=== PATIENT | male | born 1975 | race Caucasian/White ===

== ENCOUNTER 2018-03-31 02:18 | Observation (INO) | payer MEDICAID ==
[~2018-03-31] VITALS: Ht 167.6 cm; Wt 96.6 kg
[2018-03-31 04:49] VITALS: BP 148/92; BMI 34.3
[2018-03-31 06:03] LABS: BASOPHILS 0.5 % (0-2); HEMATOCRIT 34.6 % (42.0-54.0); HEMOGLOBIN 11.6 g/dL (13.5-17.5); IMMATURE GRANULOCYTES 0.3 % (0-5); LYMPHOCYTES 32.4 % (15-50); MCH 33.7 pg (26.0-34.0); MCHC 33.5 g/dL (31.0-37.0); MCV 100.6 fL (80.0-100.0); MEAN PLATELET VOLUME 11.3 fL (7.4-10.4); NEUTROPHILS 52.8 % (40-80); PLATELET COUNT 80 10x3/uL (130-400); RBC 3.44 10x6/uL (4.20-6.10); RDW 13.2 % (11.5-14.5); WBC 6.4 10x3/uL (4.8-10.8)
[2018-03-31 06:19] LABS: CALC OSMOLALITY 279 mosm/kg (275-300); CALCIUM 8.3 mg/dL (8.5-10.1); CARBON DIOXIDE 28.2 mmol/L (21.0-32.0); CHLORIDE - SERUM 105 mmol/L (98-107); CREATININE - SERUM 0.9 mg/dL (0.6-1.3); GLUCOSE 108 mg/dL (74-106); SODIUM 141 mmol/L (136-145); UREA NITROGEN 7 mg/dL (7-18); eGFR NON AFRICAN AMERICAN > 90 mL/min (90-120)
[2018-03-31 06:36] LABS: PLATELET ESTIMATE DECREASED
[2018-03-31 06:53] LABS: APTT 31.5 SECONDS (22.8-39.4); INR 1.06 (0.85-1.17); PROTIME 13.4 SECONDS (11.6-15.0)
[2018-03-31 13:22] VITALS: BP 135/79
[2018-03-31] MEDS ORDERED: BUTALB-APAP-CA1 EACH PO (14:17)
[2018-03-31] MEDS ORDERED: PRAVASTATIN SOD10 MG PO (14:17)
[2018-03-31] MEDS ORDERED: PAXIL20 MG PO (14:17)
[2018-03-31] MEDS ORDERED: DEPAKOTE500 MG PO (14:18)
[2018-03-31] MEDS ORDERED: DOK100 MG PO (14:19)
[2018-03-31] MEDS ORDERED: HYDROCODON-ACET15 ML PO (14:20)
[2018-03-31 16:23] VITALS: Ht 167.6 cm; Wt 96.6 kg
[2018-03-31 17:02] VITALS: BP 134/87
[2018-03-31 17:02] LABS: APPEARANCE CLEAR (CLEAR); BILIRUBIN NEGATIVE (NEGATIVE); COLOR YELLOW (YELLOW); GLUCOSE NEGATIVE (NEGATIVE); KETONE NEGATIVE (NEGATIVE); NITRITE NEGATIVE (NEGATIVE); PROTEIN NEGATIVE (NEGATIVE); UROBILINOGEN NORMAL (NORMAL)
[2018-03-31 20:00] VITALS: BP 135/74
[2018-04-01 00:18] VITALS: BP 129/84
[2018-04-01 04:10] VITALS: BP 144/92
[2018-04-01 06:20] LABS: BASOPHILS 0.5 % (0-2); EOSINOPHILS 3.5 % (0-7); HEMATOCRIT 31.4 % (42.0-54.0); HEMOGLOBIN 10.3 g/dL (13.5-17.5); IMMATURE GRANULOCYTES 0.2 % (0-5); LYMPHOCYTES 36.3 % (15-50); MCH 33.1 pg (26.0-34.0); MCHC 32.8 g/dL (31.0-37.0); MEAN PLATELET VOLUME 11.6 fL (7.4-10.4); MONOCYTES 11.6 % (2-11); NEUTROPHILS 47.9 % (40-80); PLATELET COUNT 79 10x3/uL (130-400); RBC 3.11 10x6/uL (4.20-6.10); RDW 13.2 % (11.5-14.5)
[2018-04-01 06:51] LABS: ALBUMIN 3.2 g/dL (3.4-5.0); ALKALINE PHOSPHATASE 49 U/L (46-116); ALT (SGPT) 15 U/L (10-68); CALC OSMOLALITY 281 mosm/kg (275-300); CALCIUM 7.9 mg/dL (8.5-10.1); CARBON DIOXIDE 26.5 mmol/L (21.0-32.0); CHLORIDE - SERUM 107 mmol/L (98-107); CREATININE - SERUM 0.9 mg/dL (0.6-1.3); GLUCOSE 104 mg/dL (74-106); POTASSIUM - SERUM 4.3 mmol/L (3.5-5.1); PROTEIN - SERUM 6.7 g/dL (6.4-8.2); SODIUM 142 mmol/L (136-145); eGFR NON AFRICAN AMERICAN > 90 mL/min (90-120)
[2018-04-01 07:00] LABS: UREA NITROGEN 11 mg/dL (7-18)
[2018-04-01 08:28] VITALS: BP 114/69
[2018-04-01 15:57] VITALS: BP 130/59
== END 2018-04-01 14:45 | disposition home or self-care (01) ==
LOC: D.MS 02:18 → D.SDCHOLD 02:18 → D.MS 04:43 → OBSVTIME 08:00 → D.MS 04-01 14:45
PROVIDERS: Emergency Medicine; Internal Medicine Nephrology
DX: N48.89 Other specified disorders of penis (principal); D62 Acute posthemorrhagic anemia; R62.50 Unspecified lack of expected normal physiological development in childhood